=== PATIENT | male | born 1970 | race Hispanic/Latino ===

== ENCOUNTER 2019-01-09 01:20 | Emergency (ER) | payer OTHER ==
[~2019-01-09] VITALS: Ht 180.3 cm; Wt 86.2 kg
[2019-01-09] MEDS ORDERED: LISINOPRIL5 MG PO (01:35)
== END 2019-01-09 02:19 | disposition home or self-care (01) ==
LOC: ED 01:20
DX: J10.1 Influenza due to other identified influenza virus with other respiratory manifestations (principal)
CPT/HCPCS: 87502; 99283